=== PATIENT | female | born 1980 | race Caucasian/White ===

== ENCOUNTER 2017-08-23 19:25 | Inpatient (IN) | payer OTHER ==
[2017-08-23 20:30] VITALS: BMI 24.0
[2017-08-23] MEDS ORDERED: METHADONE HCL 10 MG TABLET (FOR DETOX USE ONLY) PO ONE ×2 (23:00→23:32)
--- NOTE | 2017-08-23 23:16 | HP ---
COWS - Scale Resting Pulse: 2= [place] 101-120 Sweatin= Chills/Flushing Restless Observation: 1= Difficult to Sit Still Pupil Size: 0= Normal to Room Light Bone or Joint Aches: 2= Severe Diffuse Aches Runny Nose/ Eye Tearin= Runny Nose/Eyes GI Upset > 30mins: 2= Nausea/Diarrhea Tremor Observation: 2= Slight Tremor Visible Yawning Observation: 0= None Anxiety or Irritability: 2=Irritable/Anxious Goose Flesh Skin: 0=Smooth Skin COWS Score: 14 Admission [facility] Chief Complaint: withdrawal sx Allergies/Adverse Reactions: Allergies Allergy/AdvReac Type Severity Reaction Status Date / Time No Known Allergies Allergy Verified 08/23/17 22:00 History of Present Illness: 37 years old male with long history of heroin nicotine dependence has depression and chronic wound x 7 years and depression is admitted to detox Exam Limitations: No Limitations - Ebola screening Have you traveled outside of the country in the last 21 days: No Have you had contact with anyone from an Ebola affected area: No Have you been sick,other than usual withdrawal symptoms: No Do you have a fever: No - Review of Systems Constitutional: Loss of Appetite, Changes in sleep, Unintentional Wgt. Loss, Unexplained wgt Loss EENT: reports: Dental Problems (no teeth) Respiratory: reports: No Symptoms reported Cardiac: reports: No Symptoms Reported GI: reports: Constipated, Nausea, Poor Appetite, Poor Fluid Intake, Abdominal cramping : reports: No Symptoms Reported Musculoskeletal: reports: Back Pain, Joint Pain, Muscle Pain, Neck Pain Integumentary: reports: Change in Color (right lower leg chronic ulcer) Neuro: reports: Seizure (2013 cocaine induced seizure), Tremors Endocrine: reports: No Symptoms Reported Hematology: reports: No Symptoms Reported Psychiatric: reports: Judgement Intact, Orientated x3, Anxious, Depressed Other Systems: Reviewed and Negative Patient History - Patient Medical History Hx Anemia: No Hx Asthma: No Hx Chronic Obstructive Pulmonary Disease (COPD): No Hx Cancer: No Hx Cardiac Disorders: No Hx Congestive Heart Failure: No Hx Hypertension: No Hx Hypercholesterolemia: No Hx Pacemaker: No HX Cerebrovascular Accident: No Hx Seizures: No Hx Dementia: No Hx Diabetes: No Hx Gastrointestinal Disorders: No Hx Liver Disease: No Hx Genitourinary Disorders: No Hx Sexually Transmitted Disorders: No Hx Renal Disease (ESRD): No Hx Thyroid Disease: No Hx Human Immunodeficiency Virus (HIV): No Hx Hepatitis C: No Hx Depression: Yes Hx Suicide Attempt: Yes (17 years overdose) Hx Bipolar Disorder: No Hx Schizophrenia: No - Patient Surgical History Past Surgical History: No Hx Neurologic Surgery: No Hx Cataract Extraction: No Hx Cardiac Surgery: No Hx Lung Surgery: No Hx Breast Surgery: No Hx Breast Biopsy: No Hx Abdominal Surgery: No Hx Appendectomy: No Hx Cholecystectomy: No Hx Genitourinary Surgery: No Hx Section: No Hx Orthopedic Surgery: No Other Surgical History: right lower leg ulcer debridment 2016 Anesthesia Reaction: No - PPD History Previous Implant?: Yes Documented Results: Negative w/o proof Implanted On Prior R Admission?: No PPD to be Administered?: Yes - Reproductive History Patient is a Female of Child Bearing Age (11 -55 yrs old): Yes Last Menstrual Period: 08/23/13 Patient : No - Smoking Cessation Smoking history: Current every day smoker Have you smoked in the past 12 months: Yes Aproximately how many cigarettes per day: 20 Cigars Per Day: 0 Hx Chewing Tobacco Use: No Initiated information on smoking cessation: Yes 'Breaking Loose' booklet given: 08/23/17 - Substance & Tx. History Hx Alcohol Use: No Hx Substance Use: Yes Substance Use Type: Heroin, Opiates Hx Substance Use Treatment: Yes (04/2017 [facility] ) - Substances Abused METHADONE Route: Oral Frequency: Daily Amount used: 10MG Age of first use: 23 Date of Last Use: 08/22/17 PERCOCET Route: Oral Frequency: Daily Amount used: 25MG Age of first use: 19 Date of Last Use: 08/23/17 Family Disease History - Family Disease History Family Disease History: Diabetes: Father, Mother, Heart Disease: Grandparent Admission Physical Exam BHS - Vital Signs Vital Signs: Vital Signs - 24 hr 08/23/17 20:26 Temperature 95.6 F L Pulse Rate 105 H Respiratory 18 Rate Blood Pressure 116/76 - Physical General Appearance: Yes: Appropriately Dressed, Mild Distress, Alcohol on Breath , Thin, Tremorous, Irritable, Sweating, Anxious HEENTM: Yes: Hearing grossly Normal, Normal ENT Inspection, Normocephalic, Normal Voice, Other (no teeth) Respiratory: Yes: Chest Non-Tender, Lungs Clear, Normal Breath Sounds, No Respiratory Distress, No Accessory Muscle Use Neck: Yes: Supple, Trachea in good position Breast: Yes: Breasts Symetrical Cardiology: Yes: Regular Rhythm, S1, S2, Tachycardia Abdominal: Yes: Non Tender, Soft, Decreased BS Genitourinary: Yes: Within Normal Limits Back: Yes: Normal Inspection Musculoskeletal: Yes: Gait Steady (walker), Muscle Pain Extremities: Yes: Non-Tender, Tremors Neurological: Yes: Fully Oriented, Alert, Motor Strength 5/5, Normal Response, Depressed Affect Integumentary: Yes: Warm, Track Rosa Lymphatic: Yes: Within Normal Limits - Diagnostic (1) Opioid dependence with withdrawal Current Visit: Yes Status: Acute (2) Nicotine dependence Current Visit: Yes Status: Acute Qualifiers: Nicotine product type: cigarettes Substance use status: in withdrawal Qualified Code(s): F17.213 - Nicotine dependence, cigarettes, with withdrawal (3) Weight loss Current Visit: Yes Status: Acute (4) Depression (emotion) Current Visit: Yes Status: Suspected Qualifiers: Depression Type: dysthymia Qualified Code(s): F34.1 - Dysthymic disorder Cleared for Admission [facility] - Detox or Rehab [facility] Level of Care: Medically Managed Detox Regimen/Protocol: Methadone [facility] Breath Alcohol Content Breath Alcohol Content: 0.008 Urine Pregancy Test - Result Urine Test Results: Negative- NO Line Present Urine Drug Screen - Results Drug Screen Negative: No Urine Drug Screen Results: MTD-Methadone, OXY-Oxycodone
[2017-08-23] MEDS ORDERED: MAG HYDROX/AL HYDROX/SIMETH 30 ML UNIT-DOSE CUP PO PRN (23:32)
[2017-08-23] MEDS ORDERED: MAGNESIUM HYDROX 2400MG/30ML ORAL SUSPENSION 30 ML CUP PO PRN (23:32)
[2017-08-23] MEDS ORDERED: P-EPHED 60MG/TRIPROLIDI 2.5MG TABLET PO PRN (23:32)
[2017-08-23] MEDS ORDERED: ACETAMINOPHEN 325 MG TABLET (FP) PO PRN (23:32)
[2017-08-23] MEDS ORDERED: guaiFENesin/D-METHORPHAN HB 10 ML UNIT-DOSE CUPS PO PRN (23:32)
[2017-08-23] MEDS ORDERED: MAGNESIUM CITRATE 300 ML BOTTLE PO PRN (23:32)
[2017-08-23] MEDS ORDERED: LOPERAMIDE HCL 2 MG CAPSULE PO PRN (23:32)
[2017-08-24] MEDS: diazePAM 5 MG TABLET PO PRN ×3 (00:51→20:46)
--- NOTE | 2017-08-24 07:36 | CONSULT ---
[facility] Psychiatric Consult - Data Date of interview: 08/24/17 Admission source: [facility] Identifying data: This is 37 years old female with psychiatric hospitalization history intoxicated with: Abilify 15mg poqd. Remeron 15mg po qhs Substance Abuse History: - Smoking Cessation. Smoking history: Current every day smoker. Have you smoked in the past 12 months: Yes. Aproximately how many cigarettes per day: 20. Cigars Per Day: 0. Hx Chewing Tobacco Use: No. Initiated information on smoking cessation: Yes. 'Breaking Loose' booklet given : 08/23/17. - Substance & Tx. History. Hx Alcohol Use: No. Hx Substance Use: Yes. Substance Use Type: Heroin, Opiates. Hx Substance Use Treatment: Yes (2016 [facility] - Substances Abused. METHADONE. Route: Oral. Frequency: Daily. Amount used: 10MG. Age of first use: 23. Date of Last Use: 08/22/17. PERCOCET. Route: Oral. Frequency: Daily. Amount used: 25MG. Age of first use: 19. Date of Last Use: 08/23/17 Medical History: Weight loss Jovany smalls of MMTP Psychiatric History: PATIENT REPORTS HISTORTY OF DEPRESSION WITH UNCLEAR PSYCHIATRIC ADMISSION ON MORE THEN 10 YEARS AGO, REPORTS TAKING PRIOR TO ADMISSION: Abilify 15mg poqd. Remeron 15mg po qhs. PATIENT DENIES PAST SUICIDAL HISTORY Physical/Sexual Abuse/Trauma History: Denies Additional Comment: Abilify 15mg poqd. Remeron 15mg po qhs Mental Status Exam - Mental Status Exam Alert and Oriented to: Person Cognitive Function: Fair Patient Appearance: Unkempt Mood: Sad Affect: Flat Patient Behavior: Sedated Speech Pattern: Delayed Voice Loudness: Mildly Soft/Quiet Thought Process: Circumstantial Thought Disorder: Being Controlled Hallucinations: Denies Suicidal Ideation: Denies Homicidal Ideation: Denies Insight/Judgement: Fair Sleep: Difficulty falling asleep Appetite: Fair Muscle strength/Tone: Mild Hypotonicity Gait/Station: Shuffling Additional Comments: Abilify 15mg poqd. Remeron 15mg po qhs Psychiatric Findings - Problem List (Semmes 1, 2,3) (1) Drug-induced mood disorder Current Visit: Yes Status: Acute (2) Nicotine dependence Current Visit: Yes Status: Acute Qualifiers: Nicotine product type: cigarettes Substance use status: in withdrawal Qualified Code(s): F17.213 - Nicotine dependence, cigarettes, with withdrawal (3) Opioid dependence with withdrawal Current Visit: Yes Status: Acute - Initial Treatment Plan Initial Treatment Plan: Abilify 15mg poqd. Remeron 15mg po qhs
[2017-08-24] MEDS ORDERED: METHADONE HCL 10 MG TABLET (FOR DETOX USE ONLY) PO ONE (10:00)
[2017-08-24 10:01] LABS: HEMATOCRIT 29.4 % (32.4-45.2); HEMOGLOBIN 9.3 GM/dL (10.7-15.3); MCHC 31.7 g/dl (32.0-36.0); MEAN CELL VOLUME 75.7 fl (80-96); MEAN PLT VOLUME 9.1 fl (7.5-11.1); PLATELET COUNT 207 K/MM3 (134-434); RBC 3.88 M/mm3 (3.60-5.2); WHITE BLOOD COUNT 5.3 K/mm3 (4.0-10.0)
[2017-08-24 10:03] LABS: URINE APPEARANCE SLCLOUDY; URINE BILIRUBIN NEGATIVE (NEGATIVE); URINE BLOOD NEGATIVE (NEGATIVE); URINE COLOR LTYELLOW; URINE GLUCOSE (UA) NEGATIVE (NEGATIVE); URINE KETONE NEGATIVE (NEGATIVE); URINE LEUK ESTERASE NEGATIVE (NEGATIVE); URINE NITRITE NEGATIVE (NEGATIVE); URINE PROTEIN NEGATIVE (NEGATIVE); URINE UROBILINOGEN NEGATIVE mg/dL (0.2-1.0)
--- NOTE | 2017-08-24 10:09 | EKG ---
Test Reason : Blood Pressure : / mmHG Vent. Rate : 104 BPM Atrial Rate : 104 BPM P-R Int : 156 ms QRS Dur : 080 ms QT Int : 338 ms P-R-T Axes : 062 045 042 degrees QTc Int : 444 ms SINUS TACHYCARDIA SEPTAL INFARCT , AGE UNDETERMINED ABNORMAL ECG NO PREVIOUS ECGS AVAILABLE Confirmed by DONY LAST MD ([id number]) on 08/24/2017 10:09:04 AM Referred By: Confirmed By:DONY LAST MD
[2017-08-24 10:11] LABS: ADD RBC MORPHOLOGY YES
[2017-08-24 10:13] LABS: CHLORIDE 103 mmol/L (98-107); POTASSIUM 4.1 mmol/L (3.5-5.1); SODIUM 138 mmol/L (136-145)
[2017-08-24 10:20] LABS: ALBUMIN 2.6 g/dl (3.4-5.0); ALK PHOS 126 U/L (45-117); ANION GAP 6 (8-16); BILIRUBIN,TOTAL 0.4 mg/dL (0.2-1.0); BLOOD UREA NITROGEN 28 mg/dL (7-18); CALCIUM 8.4 mg/dL (8.5-10.1); CO2 29 mmol/L (21-32); GLUCOSE,RANDOM 80 mg/dL (74-106); SGOT/AST 33 U/L (15-37); SGPT/ALT 50 U/L (12-78); TOT PROT 6.6 g/dl (6.4-8.2)
[2017-08-24 10:24] LABS: SICKLE CELL SCREEN NEGATIVE (NEGATIVE)
[2017-08-24] MEDS: PRENATAL VITAMINS W/ FOLIC ACID TABLET (FP) PO SCH (10:32)
[2017-08-24] MEDS: ARIPiprazole 15 MG TABLET PO SCH (10:32)
[2017-08-24] MEDS: BACLOFEN 10 MG TABLET (FP) PO PRN ×2 (10:32→18:54)
[2017-08-24] MEDS: PATIENT'S OWN MEDICATION (NON-FORMULARY) (Amoxicillin/Potassium Clav [Augmentin 875-125 Ta PO SCH ×2 (10:33→22:25)
[2017-08-24] MEDS: NICOTINE 21 MG/24 HOURS TOPICAL PATCH TD SCH (10:33)
[2017-08-24] MEDS: PATIENT'S OWN MEDICATION (NON-FORMULARY) (Ciprofloxacin [Cipro -] 500 MG) PO SCH ×2 (10:33→18:53)
[2017-08-24] MEDS: IBUPROFEN 400 MG TABLET (FP) PO PRN (10:34)
--- NOTE | 2017-08-24 10:41 | PN ---
BHS COWS - Scale Resting Pulse: 2= [place] 101-120 Sweatin= Chills/Flushing Restless Observation: 1= Difficult to Sit Still Pupil Size: 1= Pupils >than Normal Bone or Joint Aches: 2= Severe Diffuse Aches Runny Nose/ Eye Tearin= Nasal Congestion GI Upset > 30mins: 1= Stomach Cramp Tremor Observation of Outstretched Hands: 1= Tremor Show Low, Not Seen Yawning Observation: 0= None Anxiety or Irritability: 2=Irritable/Anxious Goose Flesh Skin: 0=Smooth Skin COWS Score: 12 BHS Progress Note (SOAP) Subjective: interrupted sleep, sweats , leg ulcer rt Objective: 08/24/17 10:39 Vital Signs Temperature 97.1 F L 08/24/17 06:06 Pulse Rate 95 H 08/24/17 06:06 Respiratory Rate 18 08/24/17 06:06 Blood Pressure 105/50 08/24/17 06:06 O2 Sat by Pulse Oximetry (%) Laboratory Tests 08/24/17 08/24/17 07:00 07:00 WBC 5.3 RBC 3.88 Hgb 9.3 L Hct 29.4 L MCV 75.7 L MCH 24.0 L MCHC 31.7 L RDW 25.0 H Plt Count 207 MPV 9.1 Sickle Cell Screen Negative Sodium 138 Potassium 4.1 Chloride 103 Carbon Dioxide 29 Anion Gap 6 L BUN 28 H Creatinine 1.0 Creat Clearance w eGFR > 60 Random Glucose 80 Calcium 8.4 L Total Bilirubin 0.4 AST 33 ALT 50 Alkaline Phosphatase 126 H Total Protein 6.6 Albumin 2.6 L pt aox3 in nad ambulating with walker Assessment: 08/24/17 10:40 withdrawal sx rt lower ext chronic ulcer anemia Plan: cont. detox increase fluids daily wound care. cont. cipro. cont. amoxicillin feso4 325mg bid
[2017-08-24] MEDS ORDERED: PNEUMOCOCCAL 23 VACCINE 0.5 ML VIAL IM ONE (12:00)
[2017-08-24] MEDS ORDERED: PNEUMOC 13-VAL CONJ-DIP CRM/PF 0.5 ML DISP.SYRIN IM ONE (12:00)
[2017-08-24] MEDS ORDERED: FLU VACCINE QUAD 60 MCG/0.5 ML (MDV 17-18) IM ONE (12:00)
[2017-08-24 12:24] LABS: ANISOCYTOSIS 2+; MACROCYTOSIS 0
[2017-08-24] MEDS: SILVER SULFADIAZINE 1% TOP CREAM 50 GM JAR TP SCH (15:33)
[2017-08-24] MEDS: MENTHOL/PHENOL 1 EACH UD MM PRN (15:45)
[2017-08-24] MEDS: FERROUS SO4 325 MG TABLET (FP) PO SCH (18:30)
[2017-08-24] MEDS: THIAMINE HCL 100 MG TABLET (FP) PO SCH (22:25)
[2017-08-24] MEDS: MIRTAZAPINE 15 MG TABLET (FP) PO SCH (22:25)
[2017-08-25] MEDS: PATIENT'S OWN MEDICATION (NON-FORMULARY) (Ciprofloxacin [Cipro -] 500 MG) PO SCH ×2 (05:17→17:28)
[2017-08-25] MEDS: diazePAM 5 MG TABLET PO PRN ×2 (05:19→14:03)
[2017-08-25] MEDS: FERROUS SO4 325 MG TABLET (FP) PO SCH ×2 (07:59→17:28)
[2017-08-25] MEDS: IBUPROFEN 400 MG TABLET (FP) PO PRN (08:35)
[2017-08-25] MEDS: BACLOFEN 10 MG TABLET (FP) PO PRN (08:36)
[2017-08-25] MEDS ORDERED: METHADONE HCL 5 MG TABLET (FOR DETOX USE ONLY) PO ONE (10:00)
[2017-08-25] MEDS: PRENATAL VITAMINS W/ FOLIC ACID TABLET (FP) PO SCH (10:28)
[2017-08-25] MEDS: ARIPiprazole 15 MG TABLET PO SCH (10:28)
[2017-08-25] MEDS: NICOTINE 21 MG/24 HOURS TOPICAL PATCH TD SCH (10:29)
[2017-08-25] MEDS: PATIENT'S OWN MEDICATION (NON-FORMULARY) (Amoxicillin/Potassium Clav [Augmentin 875-125 Ta PO SCH ×2 (10:29→22:26)
--- NOTE | 2017-08-25 10:55 | PN ---
S COWS - Scale Resting Pulse: 2= [place] 101-120 Sweatin= Chills/Flushing Restless Observation: 1= Difficult to Sit Still Pupil Size: 1= Pupils >than Normal Bone or Joint Aches: 1= Mild Discomfort Runny Nose/ Eye Tearin= Nasal Congestion GI Upset > 30mins: 2= Nausea/Diarrhea Tremor Observation of Outstretched Hands: 2= Slight Tremor Visible Yawning Observation: 1= 1-2x During Session Anxiety or Irritability: 2=Irritable/Anxious Goose Flesh Skin: 3=Piloerection COWS Score: 17 S Progress Note (SOAP) Subjective: [place], sweats, interrupted sleepe, anxiety, thirst, tremors Objective: 08/25/17 10:54 Vital Signs - 24 hr 08/24/17 08/24/17 08/24/17 11:04 13:08 16:52 Temperature 99.7 F H 98.2 F 98.6 F Pulse Rate 110 H 108 H 102 H Respiratory 16 18 16 Rate Blood Pressure 102/58 101/63 122/58 08/24/17 08/25/17 08/25/17 22:07 03:30 06:20 Temperature 99.1 F 98.2 F Pulse Rate 103 H 99 H Respiratory 18 18 20 Rate Blood Pressure 103/64 103/59 08/25/17 09:22 Temperature 98.5 F Pulse Rate 104 H Respiratory 20 Rate Blood Pressure 104/65 Laboratory Tests 08/24/17 08/24/17 08/24/17 07:00 07:00 07:00 WBC 5.3 RBC 3.88 Hgb 9.3 L Hct 29.4 L MCV 75.7 L MCH 24.0 L MCHC 31.7 L RDW 25.0 H Plt Count 207 MPV 9.1 Hypochromia 0 Polychromasia 0 Poikilocytosis 0 Anisocytosis 2+ Microcytosis 2+ Macrocytosis 0 Sickle Cell Screen Negative Sodium 138 Potassium 4.1 Chloride 103 Carbon Dioxide 29 Anion Gap 6 L BUN 28 H Creatinine 1.0 Creat Clearance w eGFR > 60 Random Glucose 80 Calcium 8.4 L Total Bilirubin 0.4 AST 33 ALT 50 Alkaline Phosphatase 126 H Total Protein 6.6 Albumin 2.6 L Urine Color Urine Appearance Urine pH Ur Specific [place] Urine Protein Urine Glucose (UA) Urine Ketones Urine Blood Urine Nitrite Urine Bilirubin Urine Urobilinogen Ur Leukocyte Esterase RPR Titer Nonreactive 08/24/17 07:00 WBC RBC Hgb Hct MCV MCH MCHC RDW Plt Count MPV Hypochromia Polychromasia Poikilocytosis Anisocytosis Microcytosis Macrocytosis Sickle Cell Screen Sodium Potassium Chloride Carbon Dioxide Anion Gap BUN Creatinine Creat Clearance w eGFR Random Glucose Calcium Total Bilirubin AST ALT Alkaline Phosphatase Total Protein Albumin Urine Color Ltyellow Urine Appearance Slcloudy Urine pH 6.0 Ur Specific [place] 1.019 Urine Protein Negative Urine Glucose (UA) Negative Urine Ketones Negative Urine Blood Negative Urine Nitrite Negative Urine Bilirubin Negative Urine Urobilinogen Negative Ur Leukocyte Esterase Negative RPR Titer anemia, elevated bun/creatinine Assessment: 08/25/17 10:54 withdrwal sx, dehydration, cont detox, fluids, repeat labs, encourage mbualtion
[2017-08-25] MEDS: MENTHOL/PHENOL 1 EACH UD MM PRN (12:18)
[2017-08-25] MEDS: cloNIDine HCL 0.1 MG TABLET PO SCH ×2 (12:32→22:34)
[2017-08-25] MEDS: SILVER SULFADIAZINE 1% TOP CREAM 50 GM JAR TP SCH (12:40)
[2017-08-25] MEDS: THIAMINE HCL 100 MG TABLET (FP) PO SCH (22:26)
[2017-08-25] MEDS: DOCUSATE SODIUM 100 MG CAPSULE (FP) PO SCH (22:27)
[2017-08-25] MEDS: MIRTAZAPINE 15 MG TABLET (FP) PO SCH (22:27)
[2017-08-26] MEDS: diazePAM 5 MG TABLET PO PRN ×2 (04:38→22:33)
[2017-08-26] MEDS: PATIENT'S OWN MEDICATION (NON-FORMULARY) (Ciprofloxacin [Cipro -] 500 MG) PO SCH ×2 (05:16→17:21)
[2017-08-26] MEDS: FERROUS SO4 325 MG TABLET (FP) PO SCH ×2 (07:58→17:20)
[2017-08-26] MEDS ORDERED: METHADONE HCL 5 MG TABLET (FOR DETOX USE ONLY) PO ONE (10:00)
[2017-08-26 10:01] LABS: BASO % 0.4 % (0-2.0); EOS % 0.1 % (0-4.5); HEMOGLOBIN 9.1 GM/dL (10.7-15.3); LYMPH % 27.3 % (8-40); MCH 24.1 pg (25.7-33.7); MCHC 31.5 g/dl (32.0-36.0); MEAN CELL VOLUME 76.5 fl (80-96); MEAN PLT VOLUME 9.7 fl (7.5-11.1); MONO % 17.3 % (3.8-10.2); NEUT % 54.9 % (42.8-82.8); PLATELET COUNT 182 K/MM3 (134-434)
[2017-08-26 10:09] LABS: BLOOD UREA NITROGEN 24 mg/dL (7-18); CHLORIDE 105 mmol/L (98-107); GLUCOSE,RANDOM 95 mg/dL (74-106); POTASSIUM 4.4 mmol/L (3.5-5.1); SODIUM 139 mmol/L (136-145)
[2017-08-26 10:13] LABS: ANION GAP 6 (8-16); CALCIUM 8.4 mg/dL (8.5-10.1); CO2 28 mmol/L (21-32); CREATININE 0.8 mg/dL (0.55-1.02)
[2017-08-26] MEDS: PRENATAL VITAMINS W/ FOLIC ACID TABLET (FP) PO SCH (10:36)
[2017-08-26] MEDS: ARIPiprazole 15 MG TABLET PO SCH (10:36)
[2017-08-26] MEDS: PATIENT'S OWN MEDICATION (NON-FORMULARY) (Amoxicillin/Potassium Clav [Augmentin 875-125 Ta PO SCH ×2 (10:36→22:30)
[2017-08-26] MEDS: cloNIDine HCL 0.1 MG TABLET PO SCH ×2 (10:37→22:31)
[2017-08-26] MEDS: NICOTINE 21 MG/24 HOURS TOPICAL PATCH TD SCH (10:37)
--- NOTE | 2017-08-26 11:01 | PN ---
BHS Progress Note (SOAP) Subjective: interrupted sleep body aches sweats agitation Objective: 08/26/17 10:59 Vital Signs Temperature 98.2 F 08/26/17 10:02 Pulse Rate 88 08/26/17 10:02 Respiratory Rate 19 08/26/17 10:02 Blood Pressure 107/53 08/26/17 10:02 O2 Sat by Pulse Oximetry (%) Laboratory Tests 08/24/17 08/24/17 08/24/17 07:00 07:00 07:00 WBC 5.3 RBC 3.88 Hgb 9.3 L Hct 29.4 L MCV 75.7 L MCH 24.0 L MCHC 31.7 L RDW 25.0 H Plt Count 207 MPV 9.1 Absolute Neuts (auto) Absolute Lymphs (auto) Absolute Monos (auto) Absolute Eos (auto) Absolute Basos (auto) Neutrophils % Lymphocytes % Monocytes % Eosinophils % Basophils % Hypochromia 0 Polychromasia 0 Poikilocytosis 0 Anisocytosis 2+ Microcytosis 2+ Macrocytosis 0 Sickle Cell Screen Negative Sodium 138 Potassium 4.1 Chloride 103 Carbon Dioxide 29 Anion Gap 6 L BUN 28 H Creatinine 1.0 Creat Clearance w eGFR > 60 Random Glucose 80 Calcium 8.4 L Total Bilirubin 0.4 AST 33 ALT 50 Alkaline Phosphatase 126 H Total Protein 6.6 Albumin 2.6 L Urine Color Urine Appearance Urine pH Ur Specific [place] Urine Protein Urine Glucose (UA) Urine Ketones Urine Blood Urine Nitrite Urine Bilirubin Urine Urobilinogen Ur Leukocyte Esterase RPR Titer Nonreactive 08/24/17 08/26/17 08/26/17 07:00 07:00 07:00 WBC 4.0 RBC 3.80 Hgb 9.1 L Hct 29.0 L MCV 76.5 L MCH 24.1 L MCHC 31.5 L RDW 25.0 H Plt Count 182 MPV 9.7 Absolute Neuts (auto) 2.2 L Absolute Lymphs (auto) 1.1 L Absolute Monos (auto) 0.7 L Absolute Eos (auto) 0.0 Absolute Basos (auto) 0.0 L Neutrophils % 54.9 Lymphocytes % 27.3 Monocytes % 17.3 H Eosinophils % 0.1 Basophils % 0.4 Hypochromia Polychromasia Poikilocytosis Anisocytosis Microcytosis Macrocytosis Sickle Cell Screen Sodium 139 Potassium 4.4 Chloride 105 Carbon Dioxide 28 Anion Gap 6 L BUN 24 H Creatinine 0.8 Creat Clearance w eGFR Random Glucose 95 Calcium 8.4 L Total Bilirubin AST ALT Alkaline Phosphatase Total Protein Albumin Urine Color Ltyellow Urine Appearance Slcloudy Urine pH 6.0 Ur Specific [place] 1.019 Urine Protein Negative Urine Glucose (UA) Negative Urine Ketones Negative Urine Blood Negative Urine Nitrite Negative Urine Bilirubin Negative Urine Urobilinogen Negative Ur Leukocyte Esterase Negative RPR Titer aaox3 ambulating no acute distress Assessment: 08/26/17 11:00 withdrawal sx Plan: continue detox increase fluids
[2017-08-26] MEDS: IBUPROFEN 400 MG TABLET (FP) PO PRN (12:49)
[2017-08-26] MEDS: NICOTINE POLACRILEX 4 MG GUM BUC PRN ×2 (12:50→15:03)
[2017-08-26] MEDS: SILVER SULFADIAZINE 1% TOP CREAM 50 GM JAR TP SCH (15:25)
[2017-08-26] MEDS: DOCUSATE SODIUM 100 MG CAPSULE (FP) PO SCH (22:31)
[2017-08-26] MEDS: THIAMINE HCL 100 MG TABLET (FP) PO SCH (22:31)
[2017-08-26] MEDS: MIRTAZAPINE 15 MG TABLET (FP) PO SCH (22:31)
[2017-08-27] MEDS: PATIENT'S OWN MEDICATION (NON-FORMULARY) (Ciprofloxacin [Cipro -] 500 MG) PO SCH ×2 (05:15→17:38)
[2017-08-27] MEDS: FERROUS SO4 325 MG TABLET (FP) PO SCH ×2 (08:03→17:37)
[2017-08-27] MEDS ORDERED: METHADONE HCL 10 MG TABLET (FOR DETOX USE ONLY) PO ONE (10:00)
[2017-08-27] MEDS: ARIPiprazole 15 MG TABLET PO SCH (10:30)
[2017-08-27] MEDS: PRENATAL VITAMINS W/ FOLIC ACID TABLET (FP) PO SCH (10:30)
[2017-08-27] MEDS: cloNIDine HCL 0.1 MG TABLET PO SCH ×2 (10:30→22:35)
[2017-08-27] MEDS: PATIENT'S OWN MEDICATION (NON-FORMULARY) (Amoxicillin/Potassium Clav [Augmentin 875-125 Ta PO SCH ×2 (10:30→22:33)
[2017-08-27] MEDS: NICOTINE 21 MG/24 HOURS TOPICAL PATCH TD SCH (10:31)
[2017-08-27] MEDS: SILVER SULFADIAZINE 1% TOP CREAM 50 GM JAR TP SCH (11:53)
[2017-08-27] MEDS: NICOTINE POLACRILEX 4 MG GUM BUC PRN (13:09)
[2017-08-27] MEDS: MENTHOL/PHENOL 1 EACH UD MM PRN (13:48)
[2017-08-27] MEDS: BACLOFEN 10 MG TABLET (FP) PO PRN (14:45)
[2017-08-27] MEDS: IBUPROFEN 400 MG TABLET (FP) PO PRN (14:45)
--- NOTE | 2017-08-27 16:08 | PN ---
BHS Progress Note (SOAP) Subjective: Sweating,interrupted sleep,restless Objective: 08/27/17 16:07 Vital Signs - 8 hr 08/27/17 15:29 Temperature 98.2 F Pulse Rate 99 H Respiratory 18 Rate Blood Pressure 104/59 Laboratory Tests 08/24/17 08/24/17 08/24/17 07:00 07:00 07:00 WBC 5.3 RBC 3.88 Hgb 9.3 L Hct 29.4 L MCV 75.7 L MCH 24.0 L MCHC 31.7 L RDW 25.0 H Plt Count 207 MPV 9.1 Absolute Neuts (auto) Absolute Lymphs (auto) Absolute Monos (auto) Absolute Eos (auto) Absolute Basos (auto) Neutrophils % Lymphocytes % Monocytes % Eosinophils % Basophils % Hypochromia 0 Polychromasia 0 Poikilocytosis 0 Anisocytosis 2+ Microcytosis 2+ Macrocytosis 0 Sickle Cell Screen Negative Sodium 138 Potassium 4.1 Chloride 103 Carbon Dioxide 29 Anion Gap 6 L BUN 28 H Creatinine 1.0 Creat Clearance w eGFR > 60 Random Glucose 80 Calcium 8.4 L Total Bilirubin 0.4 AST 33 ALT 50 Alkaline Phosphatase 126 H Total Protein 6.6 Albumin 2.6 L Urine Color Urine Appearance Urine pH Ur Specific [place] Urine Protein Urine Glucose (UA) Urine Ketones Urine Blood Urine Nitrite Urine Bilirubin Urine Urobilinogen Ur Leukocyte Esterase RPR Titer Nonreactive 08/24/17 08/26/17 08/26/17 07:00 07:00 07:00 WBC 4.0 RBC 3.80 Hgb 9.1 L Hct 29.0 L MCV 76.5 L MCH 24.1 L MCHC 31.5 L RDW 25.0 H Plt Count 182 MPV 9.7 Absolute Neuts (auto) 2.2 L Absolute Lymphs (auto) 1.1 L Absolute Monos (auto) 0.7 L Absolute Eos (auto) 0.0 Absolute Basos (auto) 0.0 L Neutrophils % 54.9 Lymphocytes % 27.3 Monocytes % 17.3 H Eosinophils % 0.1 Basophils % 0.4 Hypochromia Polychromasia Poikilocytosis Anisocytosis Microcytosis Macrocytosis Sickle Cell Screen Sodium 139 Potassium 4.4 Chloride 105 Carbon Dioxide 28 Anion Gap 6 L BUN 24 H Creatinine 0.8 Creat Clearance w eGFR Random Glucose 95 Calcium 8.4 L Total Bilirubin AST ALT Alkaline Phosphatase Total Protein Albumin Urine Color Ltyellow Urine Appearance Slcloudy Urine pH 6.0 Ur Specific [place] 1.019 Urine Protein Negative Urine Glucose (UA) Negative Urine Ketones Negative Urine Blood Negative Urine Nitrite Negative Urine Bilirubin Negative Urine Urobilinogen Negative Ur Leukocyte Esterase Negative RPR Titer labs noted Assessment: 08/27/17 16:08 Withdrawal sx. Plan: Continue detox
[2017-08-27] MEDS: THIAMINE HCL 100 MG TABLET (FP) PO SCH (22:33)
[2017-08-27] MEDS: DOCUSATE SODIUM 100 MG CAPSULE (FP) PO SCH (22:34)
[2017-08-27] MEDS: MIRTAZAPINE 15 MG TABLET (FP) PO SCH (22:34)
[2017-08-28] MEDS: PATIENT'S OWN MEDICATION (NON-FORMULARY) (Ciprofloxacin [Cipro -] 500 MG) PO SCH (05:20)
[2017-08-28] MEDS ORDERED: METHADONE HCL 5 MG TABLET (FOR DETOX USE ONLY) PO ONE (06:00)
[2017-08-28 06:54] VITALS: BP 110/71; PULSE 83; TEMP 97.9
[2017-08-28] MEDS: FERROUS SO4 325 MG TABLET (FP) PO SCH (08:04)
[2017-08-28] MEDS: cloNIDine HCL 0.1 MG TABLET PO SCH (10:00)
[2017-08-28] MEDS: PRENATAL VITAMINS W/ FOLIC ACID TABLET (FP) PO SCH (10:00)
[2017-08-28] MEDS: ARIPiprazole 15 MG TABLET PO SCH (10:00)
[2017-08-28] MEDS: SILVER SULFADIAZINE 1% TOP CREAM 50 GM JAR TP SCH (10:00)
[2017-08-28] MEDS: PATIENT'S OWN MEDICATION (NON-FORMULARY) (Amoxicillin/Potassium Clav [Augmentin 875-125 Ta PO SCH (10:00)
--- NOTE | 2017-08-28 13:13 | DS ---
[facility] Detox Discharge Summary Admission Date: 08/23/17 Discharge Date: 08/28/17 - History Present History: Opioid Dependence Pertinent Past History: Rt. lower leg ulcer, chronic Anemia - Physical Exam Results Vital Signs: Vital Signs Temperature 97.9 F 08/28/17 06:53 Pulse Rate 83 08/28/17 06:53 Respiratory Rate 18 08/28/17 06:53 Blood Pressure 110/71 08/28/17 06:53 O2 Sat by Pulse Oximetry (%) Pertinent Admission Physical Exam Findings: Withdrawal sx. Laboratory Last Values WBC 4.0 K/mm3 (4.0-10.0) 08/26/17 07:00 RBC 3.80 M/mm3 (3.60-5.2) 08/26/17 07:00 Hgb 9.1 GM/dL (10.7-15.3) L 08/26/17 07:00 Hct 29.0 % (32.4-45.2) L 08/26/17 07:00 MCV 76.5 fl (80-96) L 08/26/17 07:00 MCH 24.1 pg (25.7-33.7) L 08/26/17 07:00 MCHC 31.5 g/dl (32.0-36.0) L 08/26/17 07:00 RDW 25.0 % (11.6-15.6) H 08/26/17 07:00 Plt Count 182 K/MM3 (134-434) 08/26/17 07:00 MPV 9.7 fl (7.5-11.1) 08/26/17 07:00 Absolute Neuts (auto) 2.2 # (42.8-82.8) L 08/26/17 07:00 Absolute Lymphs (auto) 1.1 (8-40) L 08/26/17 07:00 Absolute Monos (auto) 0.7 # (3.8-10.2) L 08/26/17 07:00 Absolute Eos (auto) 0.0 # (0-4.5) 08/26/17 07:00 Absolute Basos (auto) 0.0 # (0.1-1) L 08/26/17 07:00 Neutrophils % 54.9 % (42.8-82.8) 08/26/17 07:00 Lymphocytes % 27.3 % (8-40) 08/26/17 07:00 Monocytes % 17.3 % (3.8-10.2) H 08/26/17 07:00 Eosinophils % 0.1 % (0-4.5) 08/26/17 07:00 Basophils % 0.4 % (0-2.0) 08/26/17 07:00 Hypochromia 0 08/24/17 07:00 Polychromasia 0 08/24/17 07:00 Poikilocytosis 0 08/24/17 07:00 Anisocytosis 2+ 08/24/17 07:00 Microcytosis 2+ 08/24/17 07:00 Macrocytosis 0 08/24/17 07:00 Sickle Cell Screen Negative (NEGATIVE) 08/24/17 07:00 Sodium 139 mmol/L (136-145) 08/26/17 07:00 Potassium 4.4 mmol/L (3.5-5.1) 08/26/17 07:00 Chloride 105 mmol/L (98-107) 08/26/17 07:00 Carbon Dioxide 28 mmol/L (21-32) 08/26/17 07:00 Anion Gap 6 (8-16) L 08/26/17 07:00 BUN 24 mg/dL (7-18) H 08/26/17 07:00 Creatinine 0.8 mg/dL (0.55-1.02) 08/26/17 07:00 Creat Clearance w eGFR > 60 (>60) 08/24/17 07:00 Random Glucose 95 mg/dL (74-106) 08/26/17 07:00 Calcium 8.4 mg/dL (8.5-10.1) L 08/26/17 07:00 Total Bilirubin 0.4 mg/dL (0.2-1.0) 08/24/17 07:00 AST 33 U/L (15-37) 08/24/17 07:00 ALT 50 U/L (12-78) 08/24/17 07:00 Alkaline Phosphatase 126 U/L (45-117) H 08/24/17 07:00 Total Protein 6.6 g/dl (6.4-8.2) 08/24/17 07:00 Albumin 2.6 g/dl (3.4-5.0) L 08/24/17 07:00 Urine Color Ltyellow 08/24/17 07:00 Urine Appearance Slcloudy 08/24/17 07:00 Urine pH 6.0 (5.0-8.0) 08/24/17 07:00 Ur Specific [place] 1.019 (1.001-1.035) 08/24/17 07:00 Urine Protein Negative (NEGATIVE) 08/24/17 07:00 Urine Glucose (UA) Negative (NEGATIVE) 08/24/17 07:00 Urine Ketones Negative (NEGATIVE) 08/24/17 07:00 Urine Blood Negative (NEGATIVE) 08/24/17 07:00 Urine Nitrite Negative (NEGATIVE) 08/24/17 07:00 Urine Bilirubin Negative (NEGATIVE) 08/24/17 07:00 Urine Urobilinogen Negative mg/dL (0.2-1.0) 08/24/17 07:00 Ur Leukocyte Esterase Negative (NEGATIVE) 08/24/17 07:00 RPR Titer Nonreactive (NONREACTIVE) 08/24/17 07:00 labs noted on feosol - Treatment Hospital Course: Detox Protocol Followed, Detoxed Safely, Responded well, Discharged Condition Good, Rehab Referral Accepted Patient has Accepted a Rehab Referral to: Adived 12 step meetings - Medication Discharge Medications: Ambulatory Orders Amoxicillin/Potassium Clav [Augmentin 875-125 Tablet] 1 each PO BID MDD X 18 DAYS 08/23/17 Aripiprazole [Abilify] 15 mg PO DAILY 08/23/17 Ciprofloxacin [Cipro (Restricted To Id)] 500 mg PO Q12H MDD X 18 DAYS 08/23/17 Aripiprazole [Abilify -] 15 mg PO DAILY #30 tablet 08/24/17 Mirtazapine [Remeron -] 15 mg PO HS #30 tablet 08/24/17 - Diagnosis (1) Opioid dependence with withdrawal Status: Acute (2) Ulcer of leg, chronic, right Status: Acute (3) Drug-induced mood disorder Status: Acute (4) Nicotine dependence Status: Acute Qualifiers: Nicotine product type: cigarettes Substance use status: uncomplicated Qualified Code(s): F17.210 - Nicotine dependence, cigarettes, uncomplicated - AMA Did Patient Leave Against Medical Advice: No
== END 2017-08-28 10:18 | disposition home or self-care (01) | DRG 773 ==
LOC: YASAS 19:25 → Y6N 22:16
PROVIDERS: ADMIT Internal Medicine; ATTEND Internal Medicine
PROC: HZ2ZZZZ Detoxification Services for Substance Abuse Treatment (ICD-10-PCS; principal; 2017-08-23)
DX: F11.23 Opioid dependence with withdrawal (principal); F17.210 Nicotine dependence, cigarettes, uncomplicated; F19.24 Other psychoactive substance dependence with psychoactive substance-induced mood disorder; F34.1 Dysthymic disorder; E86.0 Dehydration; L97.919 Non-pressure chronic ulcer of unspecified part of right lower leg with unspecified severity; R79.89 Other specified abnormal findings of blood chemistry; D64.9 Anemia, unspecified; R00.0 Tachycardia, unspecified; Z87.898 Personal history of other specified conditions; Z59.0 Homelessness
CPT/HCPCS: 36415; 80048; 80053; 81003; 85025; 85027; 85660; 86593; 90688; 90732; 93005; 93010; G0008; G0009; J0475